=== PATIENT | male | born 1975 | race African-American/Black ===

== ENCOUNTER 2024-07-02 18:05 | Emergency (ER) | payer MEDICAID ==
[~2024-07-02] VITALS: Ht 190.5 cm; Wt 115.0 kg
[~2024-07-02 18:05] MED LIST: COR3 MT; FURO-151 MT; LISI10TA26 MT
[2024-07-02 18:08] VITALS: O2SAT 96
[2024-07-02] MEDS: ACETAMINOPHEN 325MG TABLET PO ONE (20:01)
[2024-07-02 23:47] LABS: CHLORIDE 105 mEq/L (98-107); POTASSIUM 4.7 mEq/L (3.5-5.1); SODIUM 135 mEq/L (136-145)
[2024-07-02 23:48] LABS: CALCIUM 8.8 mg/dL (8.7-10.4); CARBON DIOXIDE 21 mEq/L (21-32)
[2024-07-02 23:53] LABS: CREATININE 1.6 mg/dL (0.6-1.3); GLUCOSE 151 mg/dL (70-105); UREA NITROGEN BLOOD 14 mg/dL (9-23)
[2024-07-02 23:54] LABS: TROPONIN I HIGH SENSITIVITY 12 ng/L (3.0-53)
[2024-07-02 23:55] LABS: ALANINE AMINOTRANSFERASE 8 IU/L (10-49); ALBUMIN 3.4 g/dL (3.2-4.8); ASPARTATE AMINOTRANSFERASE 22 IU/L (<34); BILIRUBIN TOTAL 0.9 mg/dL (0.1-1.0); PROTEIN TOTAL 6.5 g/dL (6.0-8.3)
[2024-07-03 01:21] LABS: BASOPHILS % 1.1 % (0.0-2.0); EOSINOPHILS % 6.6 % (0.0-5.0); HEMATOCRIT. 30.4 % (42.0-52.0); HEMOGLOBIN. 9.7 g/dL (14.0-18.0); LYMPHOCYTES % 23.5 % (20.0-50.0); MEAN CORPUSCULAR VOLUME 84.3 fL (80.0-94.0); MEAN PLATELET VOLUME 6.8 fl (7.4-10.4); MONOCYTES % 11.1 % (2.0-8.0); NEUTROPHILS % 57.7 % (40.0-76.0); PLATELET 238 x1000/uL (130-400); RED CELL DISTRIBUTION WIDTH 19.1 % (11.6-14.6); WHITE BLOOD COUNT 4.1 x1000/uL (4.5-11.0)
[2024-07-03 01:54] VITALS: BP 112/80; PULSE 98; RESP 18; TEMP 36.89184; O2SAT 98
== END 2024-07-03 03:57 | disposition home or self-care (01) ==
LOC: ER 18:05
DX: M79.604 Pain in right leg (principal); M79.605 Pain in left leg; J45.909 Unspecified asthma, uncomplicated; I10 Essential (primary) hypertension
CPT/HCPCS: 36415; 80053; 83880; 84484; 85025; 93005; 99285

== ENCOUNTER 2024-07-03 04:26 | Inpatient (IN) | payer MEDICAID, OTHER ==
[~2024-07-03] VITALS: Ht 170.2 cm; Wt 147.2 kg
[2024-07-03 05:29] VITALS: O2SAT 100
[2024-07-03] MEDS: CLONIDINE 0.1MG TABLET PO NR (19:46)
[2024-07-04] MEDS ORDERED: ZOLPIDEM TARTRATE 5MG TABLET PO PRN (02:15)
[2024-07-04] MEDS ORDERED: ENOXAPARIN 40MG/0.4ML SYR SUBCUT SCH (02:15)
[2024-07-04] MEDS ORDERED: IPRATROPIUM/ALBUTEROL 0.5-3(2.5)MG/3ML NEB NEB PRN (02:15)
[2024-07-04] MEDS ORDERED: ACETAMINOPHEN 325MG TABLET PO PRN (02:15)
[2024-07-04] MEDS ORDERED: ONDANSETRON HCL 4MG/2ML INJ IV PRN (02:15)
[2024-07-04] MEDS ORDERED: HYDROCODONE/ACETAMINOPHEN 5/325MG TABLET PO PRN (02:15)
[2024-07-04] MEDS ORDERED: CLONIDINE 0.1MG TABLET PO PRN (02:15)
[2024-07-04] MEDS ORDERED: NALOXONE HCL 0.4MG/ML VIAL IV PRN (02:30)
[2024-07-04] MEDS: FUROSEMIDE 40MG/4ML VIAL IVP SCH ×2 (03:12→18:11)
[2024-07-04] MEDS: PANTOPRAZOLE 40MG DR TABLET PO SCH (06:32)
[2024-07-04 09:40] VITALS: BP 138/98; PULSE 100; RESP 20; TEMP 37.0296
[2024-07-04 10:00] VITALS: BP 138/98; PULSE 89; RESP 20; TEMP 36.6696; O2SAT 96
[2024-07-04] MEDS: LISINOPRIL 10MG TABLET PO SCH (10:05)
[2024-07-04] MEDS: CARVEDILOL 3.125 MG TABLET PO SCH (10:05)
[2024-07-04] MEDS: ENOXAPARIN 30MG/0.3ML SYR SUBCUT SCH (10:05)
[2024-07-04 10:15] LABS: BASOPHILS % 1.4 % (0.0-2.0); HEMATOCRIT. 33.8 % (42.0-52.0); HEMOGLOBIN. 10.6 g/dL (14.0-18.0); LYMPHOCYTES % 22.3 % (20.0-50.0); MEAN CORPUSCULAR HEMOGLOBIN 27.1 pg (28.0-32.0); MEAN CORPUSCULAR HGB CONC 31.2 g/dL (31.0-37.0); MEAN CORPUSCULAR VOLUME 86.6 fL (80.0-94.0); MONOCYTES % 10.1 % (2.0-8.0); NEUTROPHILS % 60.2 % (40.0-76.0); PLATELET 234 x1000/uL (130-400); RED CELL DISTRIBUTION WIDTH 19.5 % (11.6-14.6)
[2024-07-04 10:44] LABS: POTASSIUM 4.9 mEq/L (3.5-5.1)
[2024-07-04 10:45] LABS: CALCIUM 8.8 mg/dL (8.7-10.4)
[2024-07-04 10:50] LABS: CREATININE 1.7 mg/dL (0.6-1.3)
[2024-07-04 12:00] VITALS: BP 141/102; PULSE 96; RESP 18; TEMP 36.83628; O2SAT 96
[2024-07-04 16:00] VITALS: BP 146/109; PULSE 98; RESP 18; TEMP 37.00296; O2SAT 95
[2024-07-04 20:00] VITALS: BP 137/85; PULSE 108; RESP 20; TEMP 36.78072; O2SAT 97
[2024-07-04] MEDS: CARVEDILOL 6.25 MG TABLET PO SCH (21:56)
[2024-07-04 22:31] LABS: CREATINE KINASE MB FRACTION 3.5 ng/mL (0.5-3.6)
[2024-07-05] VITALS: BP 131/90; PULSE 102; RESP 20; TEMP 36.9474; O2SAT 98
[2024-07-05 04:00] VITALS: BP 140/88; PULSE 98; RESP 18; TEMP 36.72516; O2SAT 98
[2024-07-05 08:00] VITALS: BP 130/80; PULSE 89; RESP 20; TEMP 36.6696; O2SAT 99
[2024-07-05 08:47] LABS: CARBON DIOXIDE 24 mEq/L (21-32); CHLORIDE 104 mEq/L (98-107); POTASSIUM 4.6 mEq/L (3.5-5.1); SODIUM 136 mEq/L (136-145)
[2024-07-05 08:49] LABS: CALCIUM 9.2 mg/dL (8.7-10.4)
[2024-07-05 08:51] LABS: TROPONIN I HIGH SENSITIVITY 14 ng/L (3.0-53)
[2024-07-05 08:53] LABS: CREATININE 1.5 mg/dL (0.6-1.3); GLUCOSE 98 mg/dL (70-105)
[2024-07-05 08:54] LABS: UREA NITROGEN BLOOD 17 mg/dL (9-23)
[2024-07-05 09:46] LABS: BASOPHILS % 1.1 % (0.0-2.0); HEMATOCRIT. 32.8 % (42.0-52.0); HEMOGLOBIN. 10.5 g/dL (14.0-18.0); MEAN CORPUSCULAR HEMOGLOBIN 27.2 pg (28.0-32.0); MEAN PLATELET VOLUME 7.4 fl (7.4-10.4); MONOCYTES % 13.3 % (2.0-8.0); NEUTROPHILS % 54.6 % (40.0-76.0); PLATELET 238 x1000/uL (130-400); RED BLOOD CELL COUNT 3.86 mill/uL (4.7-6.1); RED CELL DISTRIBUTION WIDTH 19.3 % (11.6-14.6); WHITE BLOOD COUNT 4.1 x1000/uL (4.5-11.0)
[2024-07-05] MEDS: MAGNESIUM 2 G PREMIX 50 ML IV ONE ×2 (10:00→18:00)
[2024-07-05 12:00] VITALS: BP 120/75; PULSE 96; RESP 18; TEMP 36.83628; O2SAT 98
[2024-07-05 14:29] LABS: CREATINE KINASE 74 IU/L (46-171)
[2024-07-05 16:00] VITALS: BP 128/80; PULSE 75; RESP 20; TEMP 36.6696; O2SAT 99
[2024-07-05 17:27] LABS: CLARITY URINE CLEAR (CLEAR); COLOR URINE YELLOW (YELLOW); GLUCOSE URINE NEGATIVE (NEGATIVE); KETONES URINE NEGATIVE (NEGATIVE); LEUKOCYTE ESTERASE URINE NEGATIVE (NEGATIVE); NITRITE URINE NEGATIVE (NEGATIVE); OCCULT BLOOD URINE NEGATIVE (NEGATIVE); PH URINE 5.5 (4.5-8.0); PROTEIN URINE 2+ (NEGATIVE); SPECIFIC GRAVITY URINE 1.014 (1.005-1.030)
[2024-07-05 17:32] LABS: *AMPHETAMINES SCREEN URINE PRESUMPTIVE POSITIVE (NEGATIVE); *BARBITURATES SCREEN URINE NEGATIVE (NEGATIVE); *BENZODIAZEPINES SCREEN URINE NEGATIVE (NEGATIVE); *COCAINE SCREEN URINE NEGATIVE (NEGATIVE); CANNABINOID URINE SCREEN PRESUMPTIVE POSITIVE (NEGATIVE); ECSTASY MDMA SCREEN URINE NEGATIVE (NEGATIVE); METHADONE URINE SCREEN NEGATIVE (NEGATIVE); OPIATES URINE SCREEN NEGATIVE (NEGATIVE); PHENCYCLIDINE URINE SCREEN NEGATIVE (NEGATIVE)
[2024-07-05 17:51] LABS: BACTERIA URINE NONE SEEN; RBC URINE NONE SEEN /hpf (0-2); SQUAMOUS EPITHELIAL CELL URINE NONE SEEN /lpf (RARE/1+); WBC URINE NONE SEEN /hpf (0-2)
[2024-07-05 20:00] VITALS: BP 125/91; PULSE 80; RESP 19; TEMP 36.9474
[2024-07-06 08:00] VITALS: BP 119/83; PULSE 94; TEMP 36.3918; TEMP 36.39180
[2024-07-06] MEDS: FUROSEMIDE 20MG TABLET PO SCH (11:40)
[2024-07-06 12:25] VITALS: BP 117/75; PULSE 95
[2024-07-06] MEDS ORDERED: COR3 MT (12:56)
[2024-07-06] MEDS ORDERED: FURO-151 MT (12:56)
[2024-07-06] MEDS ORDERED: LISI10TA26 MT (12:56)
== END 2024-07-06 17:35 | disposition home or self-care (01) | DRG 194 ==
LOC: ER 04:26 → EDBEDREQ 12:41 → EDBEDREQSVC 12:41 → 5WST 07-04 01:06 → 3WST 07-04 08:22
PROVIDERS: ADMIT Internal Medicine; ATTEND Internal Medicine
DX: I13.0 Hypertensive heart and chronic kidney disease with heart failure and stage 1 through stage 4 chronic kidney disease, or unspecified chronic kidney disease (principal); J96.01 Acute respiratory failure with hypoxia; N17.9 Acute kidney failure, unspecified; E66.01 Morbid (severe) obesity due to excess calories; Z91.148 Patient's other noncompliance with medication regimen for other reason; Z68.43 Body mass index [BMI] 50.0-59.9, adult; N18.30 Chronic kidney disease, stage 3 unspecified; E83.42 Hypomagnesemia; I50.23 Acute on chronic systolic (congestive) heart failure; G47.33 Obstructive sleep apnea (adult) (pediatric); D64.9 Anemia, unspecified; D72.819 Decreased white blood cell count, unspecified; J45.909 Unspecified asthma, uncomplicated; F17.210 Nicotine dependence, cigarettes, uncomplicated; Z59.00 Homelessness unspecified
CPT/HCPCS: 36415; 71045; 76770; 80048; 80305; 81003; 82550; 82553; 83735; 84484; 85025; 93306; 93970; 99285; C1893; J1650; J1940; J3475